=== PATIENT | female | born 1965 | race Caucasian/White ===

== ENCOUNTER 2017-10-13 09:04 | Inpatient (IN) | payer OTHER ==
[~2017-10-13 09:04] MED LIST: CEFAZOLIN 1 GM INJ; SUCCINYLCHOLINE CHLORIDE 100 MG/5 ML SYG IV
[2017-10-13] MEDS ORDERED: PROPOFOL 20 ML (11:23)
[2017-10-13] MEDS ORDERED: LIDOCAINE 2% (SDV) 5 ML INJ (11:23)
[2017-10-13] MEDS ORDERED: GLYCOPYRROLATE 0.4 MG INJ (11:23)
[2017-10-13] MEDS ORDERED: ROCURONIUM 50 MG INJ (11:23)
[2017-10-13] MEDS ORDERED: DEXAMETHASONE 4 MG/ML 1 ML INJ (11:24)
[2017-10-13] MEDS ORDERED: MIDAZOLAM 1 MG/ML 2 ML INJ (11:24)
[2017-10-13] MEDS ORDERED: NEOSTIGMINE 3 MG/3 ML SYRINGE (11:24)
[2017-10-13] MEDS ORDERED: ONDANSETRON 4 MG INJ (11:24)
[2017-10-13] MEDS ORDERED: FENTAnyl 50 MCG/ML VIAL (11:24)
[2017-10-13] MEDS ORDERED: morphine (1 MG/ML) 10ML SYRINGE IV ×3 (11:30)
[2017-10-13] MEDS ORDERED: LABETALOL HCL 20MG INJ IV (11:30)
[2017-10-13] MEDS ORDERED: hydrALAzine 20 MG INJ IV (11:30)
[2017-10-13] MEDS ORDERED: EPHEDrine SULFATE 50 MG/5 ML SYG IV (11:30)
[2017-10-13] MEDS ORDERED: ATROPINE 1 MG/10 ML SYRINGE IV (11:30)
[2017-10-13] MEDS ORDERED: OXYCODONE/ACETAMINOPHEN (5/325) TAB PO ×2 (11:30)
[2017-10-13] MEDS ORDERED: MIDAZOLAM 1 MG/ML 2 ML INJ IV (11:30)
[2017-10-13] MEDS: CEFAZOLIN 1 GM/50 ML (PMX) 50 ML IVPB (12:01)
[2017-10-13] MEDS: LIDOCAINE 1%/EPI 30 ML INJ (12:22)
[2017-10-13] MEDS: BUPIVACAINE 0.25% (MPF) 30 ML INJ (12:22)
[2017-10-13] MEDS ORDERED: METOCLOPRAMIDE 10 MG INJ (12:23)
[2017-10-13] MEDS: ONDANSETRON 4 MG INJ IV ×3 (13:25→23:15)
[2017-10-13] MEDS: HYDROmorphONE 1 MG/5 ML IV SYRINGE IV ×5 (13:26→15:38)
[2017-10-13] MEDS: MEPERIDINE 25 MG INJ IV (13:42)
[2017-10-13] MEDS ORDERED: HYDROCODONE/APAP (5/325) TAB PO (14:00)
[2017-10-13] MEDS: FENTAnyl 50 MCG/ML VIAL IV ×3 (14:01→14:37)
[2017-10-13] MEDS: DIPHENHYDRAMINE 50 MG INJ IV (14:13)
[2017-10-13] MEDS: SOD CHLORIDE 0.9% 1,000 ML IV (16:44)
[2017-10-13] MEDS: KETOROLAC 30 MG INJ IV (18:31)
[2017-10-13] MEDS: morphine 4 MG/ML VIAL IV ×2 (20:21→23:47)
[2017-10-14] MEDS: KETOROLAC 30 MG INJ IV ×4 (00:25→18:08)
[2017-10-14 05:02] LABS: ADD MAN DIFF? NO
[2017-10-14 05:07] LABS: WHITE BLOOD COUNT 10.6 10^3/ul (4.8-10.8)
[2017-10-14 05:07] LABS: BASOPHILS % 0.1 % (0.0-2.0); HEMATOCRIT 35.7 % (37.0-47.0); HEMOGLOBIN 11.8 g/dl (12.0-16.0); LYMPHOCYTES # 0.8 10^3/ul (0.8-2.9); LYMPHOCYTES % 7.1 % (15.0-51.0); MEAN CORPUSCULAR HEMOGLOBIN 31.7 pg (29.0-33.0); MEAN CORPUSCULAR HGB CONC 33.1 g/dl (32.0-37.0); MEAN PLATELET VOLUME 11.6 fl (7.4-10.4); MONOCYTE # 0.7 10^3/ul (0.3-0.9); MONOCYTES % 6.3 % (0.0-11.0); NEUTROPHIL # 9.1 10^3/ul (1.6-7.5); NEUTROPHILS % 86.1 % (39.0-77.0); PLATELET COUNT 186 10^3/UL (140-415); RED BLOOD COUNT 3.72 10^6/ul (4.20-5.40); RED CELL DISTRIBUTION WIDTH 12.2 % (11.5-14.5)
[2017-10-14 05:35] LABS: ANION GAP 11 (8-16); BLOOD UREA NITROGEN 12 mg/dl (7-20); CALCIUM 9.2 mg/dl (8.4-10.2); CARBON DIOXIDE 25 mmol/L (21-31); CHLORIDE 109 mmol/L (97-110); CREATININE 0.71 mg/dl (0.44-1.00); GLUCOSE 110 mg/dl (70-220); POTASSIUM 4.3 mmol/L (3.5-5.1); SODIUM 141 mmol/L (135-144)
[2017-10-14] MEDS: PANTOPRAZOLE 40 MG INJ IV (06:04)
[2017-10-14] MEDS: ONDANSETRON 4 MG INJ IV ×5 (06:11→23:50)
[2017-10-14] MEDS: SOD CHLORIDE 0.9% 1,000 ML IV ×2 (14:03→20:59)
[2017-10-14 19:53] LABS: ANION GAP 11 (8-16); BLOOD UREA NITROGEN 13 mg/dl (7-20); CALCIUM 9.2 mg/dl (8.4-10.2); CARBON DIOXIDE 25 mmol/L (21-31); CHLORIDE 110 mmol/L (97-110); CREATININE 0.84 mg/dl (0.44-1.00); GLUCOSE 94 mg/dl (70-220); POTASSIUM 3.7 mmol/L (3.5-5.1); SODIUM 142 mmol/L (135-144)
[2017-10-14] MEDS ORDERED: NORTRIPTYLINE 50 MG CAP PO (22:30)
[2017-10-14] MEDS: NORTRIPTYLINE 25 MG CAP PO (23:50)
[2017-10-15] MEDS: KETOROLAC 30 MG INJ IV ×3 (01:15→11:28)
[2017-10-15 05:31] LABS: ADD MAN DIFF? NO
[2017-10-15 05:39] LABS: BASOPHIL # 0.1 10^3/ul (0.0-0.1); BASOPHILS % 0.5 % (0.0-2.0); EOSINOPHILS # 0.1 10^3/ul (0.0-0.5); HEMOGLOBIN 11.2 g/dl (12.0-16.0); LYMPHOCYTES # 2.2 10^3/ul (0.8-2.9); LYMPHOCYTES % 19.6 % (15.0-51.0); MEAN CORPUSCULAR HEMOGLOBIN 31.7 pg (29.0-33.0); MEAN CORPUSCULAR HGB CONC 32.9 g/dl (32.0-37.0); MEAN CORPUSCULAR VOLUME 96.3 fl (82.0-101.0); MONOCYTE # 0.7 10^3/ul (0.3-0.9); MONOCYTES % 6.4 % (0.0-11.0); NEUTROPHILS % 72.1 % (39.0-77.0); PLATELET COUNT 157 10^3/UL (140-415); RED BLOOD COUNT 3.53 10^6/ul (4.20-5.40); RED CELL DISTRIBUTION WIDTH 12.7 % (11.5-14.5)
[2017-10-15 06:05] LABS: ANION GAP 10 (8-16); BLOOD UREA NITROGEN 13 mg/dl (7-20); CALCIUM 9.1 mg/dl (8.4-10.2); CARBON DIOXIDE 24 mmol/L (21-31); CHLORIDE 112 mmol/L (97-110); CREATININE 0.78 mg/dl (0.44-1.00); GLUCOSE 88 mg/dl (70-220); POTASSIUM 3.5 mmol/L (3.5-5.1); SODIUM 142 mmol/L (135-144)
[2017-10-15] MEDS: ONDANSETRON 4 MG INJ IV ×4 (06:28→23:11)
[2017-10-15] MEDS: PANTOPRAZOLE 40 MG INJ IV (06:28)
[2017-10-15] MEDS: NORTRIPTYLINE 25 MG CAP PO ×2 (09:00→20:24)
[2017-10-15] MEDS: SOD CHLORIDE 0.9% 1,000 ML IV (11:28)
[2017-10-15] MEDS: ALBUTEROL/IPRATROPIUM (NEB) 3 ML AMP HHN ×2 (14:30→20:00)
[2017-10-15] MEDS ORDERED: ACETAMINOPHEN 325 MG TAB PO (15:30)
[2017-10-15] MEDS ORDERED: GUAIFENESIN/DM 5ML CUP PO (15:30)
[2017-10-15] MEDS: FLUTICASONE/VILANTEROL 100-25 INH (16:00)
[2017-10-15] MEDS: traMADol 50 MG TAB PO (16:52)
[2017-10-15] MEDS: CEFTRIAXONE 1 GM/50 ML (PMX) 50 ML IVPB (16:52)
[2017-10-15] MEDS: ENOXAPARIN 40 MG/0.4 ML SYG SC (16:54)
[2017-10-15 17:19] LABS: ADD UMIC NO; UR ASCORBIC ACID NEGATIVE (NEGATIVE); UR BILIRUBIN (Dip) NEGATIVE (NEGATIVE); UR BLOOD (Dip) NEGATIVE (NEGATIVE); UR CLARITY CLEAR (CLEAR); UR COLOR STRAW (YELLOW); UR GLUCOSE (Dip) NEGATIVE (NEGATIVE); UR KETONES (Dip) NEGATIVE (NEGATIVE); UR LEUKOCYTE ESTERASE (Dip) NEGATIVE Leu/ul (NEGATIVE); UR NITRITE (Dip) NEGATIVE (NEGATIVE); UR SPECIFIC GRAVITY (Dip) 1.006 (1.003-1.030); UR TOTAL PROTEIN (Dip) NEGATIVE (NEGATIVE); UR UROBILINOGEN (Dip) NEGATIVE (NEGATIVE)
[2017-10-15] MEDS: RIZATRIPTAN 10MG PO (18:32)
[2017-10-15] MEDS: GABAPENTIN 300 MG CAP PO (20:24)
[2017-10-15] MEDS: FLUTICASONE 0.05% 16 GM NAS SPRAY NASAL (20:24)
[2017-10-16] MEDS: SOD CHLORIDE 0.9% 1,000 ML IV ×3 (00:16→15:28)
[2017-10-16] MEDS: ONDANSETRON 4 MG INJ IV ×3 (00:40→11:24)
[2017-10-16] MEDS: morphine 4 MG/ML VIAL IV (00:40)
[2017-10-16] MEDS: ALBUTEROL/IPRATROPIUM (NEB) 3 ML AMP HHN (01:53)
[2017-10-16 05:28] LABS: ADD MAN DIFF? NO
[2017-10-16] MEDS: PANTOPRAZOLE 40 MG INJ IV (05:28)
[2017-10-16 05:35] LABS: WHITE BLOOD COUNT 9.6 10^3/ul (4.8-10.8)
[2017-10-16 05:35] LABS: BASOPHILS % 0.4 % (0.0-2.0); EOSINOPHILS # 0.2 10^3/ul (0.0-0.5); HEMATOCRIT 35.5 % (37.0-47.0); HEMOGLOBIN 11.7 g/dl (12.0-16.0); LYMPHOCYTES # 1.8 10^3/ul (0.8-2.9); LYMPHOCYTES % 18.5 % (15.0-51.0); MEAN CORPUSCULAR HEMOGLOBIN 31.9 pg (29.0-33.0); MEAN CORPUSCULAR VOLUME 96.7 fl (82.0-101.0); MEAN PLATELET VOLUME 11.4 fl (7.4-10.4); MONOCYTE # 0.9 10^3/ul (0.3-0.9); MONOCYTES % 9.2 % (0.0-11.0); NEUTROPHIL # 6.6 10^3/ul (1.6-7.5); NEUTROPHILS % 69.2 % (39.0-77.0); PLATELET COUNT 151 10^3/UL (140-415); RED BLOOD COUNT 3.67 10^6/ul (4.20-5.40); RED CELL DISTRIBUTION WIDTH 12.4 % (11.5-14.5)
[2017-10-16 05:58] LABS: ANION GAP 10 (8-16); BLOOD UREA NITROGEN 10 mg/dl (7-20); CALCIUM 8.8 mg/dl (8.4-10.2); CARBON DIOXIDE 26 mmol/L (21-31); CHLORIDE 107 mmol/L (97-110); CREATININE 0.74 mg/dl (0.44-1.00); GLUCOSE 93 mg/dl (70-220); POTASSIUM 3.3 mmol/L (3.5-5.1); SODIUM 140 mmol/L (135-144)
[2017-10-16] MEDS: RIZATRIPTAN 10MG PO (07:24)
[2017-10-16] MEDS: FLUTICASONE/VILANTEROL 100-25 INH (09:00)
[2017-10-16] MEDS: ENOXAPARIN 40 MG/0.4 ML SYG SC (09:00)
[2017-10-16] MEDS: FLUTICASONE 0.05% 16 GM NAS SPRAY NASAL ×2 (09:00→20:45)
[2017-10-16 10:06] LABS: ALANINE AMINOTRANSFERASE 58 IU/L (13-69); ALBUMIN 3.8 g/dl (3.3-4.9); ALKALINE PHOSPHATASE 54 IU/L (42-121); ASPARTATE AMINO TRANSFERASE 56 IU/L (15-46); BILIRUBIN,INDIRECT 0.5 mg/dl (0-1.1); BILIRUBIN,TOTAL 0.5 mg/dl (0.2-1.3); TOTAL PROTEIN 6.7 g/dl (6.1-8.1)
[2017-10-16] MEDS: GABAPENTIN 300 MG CAP PO ×2 (14:16→20:45)
[2017-10-16] MEDS: BENAZEPRIL 40 MG TAB PO (14:17)
[2017-10-16] MEDS ORDERED: ALBUTEROL/IPRATROPIUM (NEB) 3 ML AMP HHN (14:30)
[2017-10-16] MEDS: CEFTRIAXONE 1 GM/50 ML (PMX) 50 ML IVPB (15:30)
[2017-10-16] MEDS ORDERED: ASA/ACETAMINOPHEN/CAFF TAB PO (18:00)
[2017-10-16] MEDS: ASA/ACETAMINOPHEN/CAFF TAB PO (18:43)
[2017-10-16] MEDS: NORTRIPTYLINE 25 MG CAP PO (20:45)
[2017-10-16] MEDS ORDERED: NORTRIPTYLINE 50 MG CAP PO (21:00)
[2017-10-16] MEDS ORDERED: NORTRIPTYLINE 25 MG CAP PO (21:00)
[2017-10-17] MEDS: PANTOPRAZOLE 40 MG INJ IV (05:13)
[2017-10-17] MEDS: SOD CHLORIDE 0.9% 1,000 ML IV ×2 (05:15→20:53)
[2017-10-17] MEDS: HYDROCODONE/APAP (5/325) TAB PO (05:20)
[2017-10-17 06:06] LABS: ADD MAN DIFF? NO
[2017-10-17 07:14] LABS: ANION GAP 13 (8-16); BLOOD UREA NITROGEN 11 mg/dl (7-20); CALCIUM 9.5 mg/dl (8.4-10.2); CARBON DIOXIDE 26 mmol/L (21-31); CHLORIDE 108 mmol/L (97-110); GLUCOSE 95 mg/dl (70-220); POTASSIUM 3.1 mmol/L (3.5-5.1); SODIUM 144 mmol/L (135-144)
[2017-10-17 07:18] LABS: WHITE BLOOD COUNT 10.1 10^3/ul (4.8-10.8)
[2017-10-17 07:18] LABS: BASOPHIL # 0.1 10^3/ul (0.0-0.1); BASOPHILS % 0.5 % (0.0-2.0); EOSINOPHILS # 0.5 10^3/ul (0.0-0.5); EOSINOPHILS % 5.2 % (0.0-7.0); HEMATOCRIT 36.8 % (37.0-47.0); HEMOGLOBIN 12.3 g/dl (12.0-16.0); LYMPHOCYTES # 2.1 10^3/ul (0.8-2.9); LYMPHOCYTES % 20.9 % (15.0-51.0); MEAN CORPUSCULAR HEMOGLOBIN 31.3 pg (29.0-33.0); MEAN CORPUSCULAR HGB CONC 33.4 g/dl (32.0-37.0); MEAN CORPUSCULAR VOLUME 93.6 fl (82.0-101.0); MEAN PLATELET VOLUME 11.6 fl (7.4-10.4); MONOCYTE # 0.9 10^3/ul (0.3-0.9); MONOCYTES % 8.5 % (0.0-11.0); NEUTROPHIL # 6.5 10^3/ul (1.6-7.5); NEUTROPHILS % 64.4 % (39.0-77.0); PLATELET COUNT 187 10^3/UL (140-415); RED BLOOD COUNT 3.93 10^6/ul (4.20-5.40); RED CELL DISTRIBUTION WIDTH 12.1 % (11.5-14.5)
[2017-10-17] MEDS: ENOXAPARIN 40 MG/0.4 ML SYG SC (08:16)
[2017-10-17] MEDS: FLUTICASONE/VILANTEROL 100-25 INH ×2 (08:42→18:16)
[2017-10-17] MEDS: FLUTICASONE 0.05% 16 GM NAS SPRAY NASAL ×2 (08:42→21:00)
[2017-10-17] MEDS: GABAPENTIN 300 MG CAP PO ×2 (10:11→21:00)
[2017-10-17] MEDS: POTASSIUM CHLORIDE (SR) 20 MEQ TAB PO (10:12)
[2017-10-17] MEDS: MAGNESIUM CITRATE 300 ML BTL PO (10:12)
[2017-10-17] MEDS: BENAZEPRIL 40 MG TAB PO (10:14)
[2017-10-17] MEDS: ONDANSETRON 4 MG INJ IV ×3 (12:44→22:17)
[2017-10-17] MEDS: ASA/ACETAMINOPHEN/CAFF TAB PO (16:53)
[2017-10-17] MEDS: NORTRIPTYLINE 25 MG CAP PO (20:52)
[2017-10-18] MEDS: HYDROCODONE/APAP (5/325) TAB PO ×2 (05:02→14:16)
[2017-10-18] MEDS: PANTOPRAZOLE 40 MG INJ IV (05:02)
[2017-10-18] MEDS: ONDANSETRON 4 MG INJ IV ×3 (05:02→19:28)
[2017-10-18 06:27] LABS: ANION GAP 13 (8-16); BLOOD UREA NITROGEN 10 mg/dl (7-20); CALCIUM 9.2 mg/dl (8.4-10.2); CARBON DIOXIDE 27 mmol/L (21-31); CHLORIDE 106 mmol/L (97-110); CREATININE 0.73 mg/dl (0.44-1.00); GLUCOSE 98 mg/dl (70-220); POTASSIUM 3.8 mmol/L (3.5-5.1); SODIUM 142 mmol/L (135-144)
[2017-10-18] MEDS: SOD CHLORIDE 0.9% 1,000 ML IV ×2 (08:38→22:10)
[2017-10-18] MEDS: GABAPENTIN 300 MG CAP PO ×2 (08:39→22:12)
[2017-10-18] MEDS: BENAZEPRIL 40 MG TAB PO (08:40)
[2017-10-18] MEDS: FLUTICASONE 0.05% 16 GM NAS SPRAY NASAL ×2 (08:41→22:14)
[2017-10-18] MEDS: ENOXAPARIN 40 MG/0.4 ML SYG SC (08:43)
[2017-10-18] MEDS: NORTRIPTYLINE 25 MG CAP PO (22:12)
[2017-10-19] MEDS: ONDANSETRON 4 MG TAB PO ×2 (01:43→08:00)
[2017-10-19] MEDS: HYDROCODONE/APAP (5/325) TAB PO ×2 (01:43→06:00)
[2017-10-19] MEDS: PANTOPRAZOLE 40 MG INJ IV (06:00)
[2017-10-19] MEDS: FLUTICASONE 0.05% 16 GM NAS SPRAY NASAL (09:00)
[2017-10-19] MEDS: ENOXAPARIN 40 MG/0.4 ML SYG SC (09:00)
[2017-10-19] MEDS: GABAPENTIN 300 MG CAP PO (09:55)
[2017-10-19] MEDS: BENAZEPRIL 40 MG TAB PO (09:55)
[2017-10-19] MEDS: FLUTICASONE/VILANTEROL 100-25 INH (09:58)
[2017-10-19] MEDS: SOD CHLORIDE 0.9% 1,000 ML IV (11:30)
[2017-10-19] MEDS: ONDANSETRON 4 MG INJ IV (15:39)
[2017-10-19] MEDS: ASA/ACETAMINOPHEN/CAFF TAB PO (15:43)
== END 2017-10-19 19:08 | disposition home or self-care (01) | DRG 419 ==
LOC: SDS 09:04 → MS1 15:47 → SDS 14:54 → MS1 14:54
PROC: 0FT44ZZ Resection of Gallbladder, Percutaneous Endoscopic Approach (ICD-10-PCS; principal; 2017-10-13 11:00)
DX: K80.10 Calculus of gallbladder with chronic cholecystitis without obstruction (principal); K58.9 Irritable bowel syndrome, unspecified; R11.0 Nausea; G43.909 Migraine, unspecified, not intractable, without status migrainosus; E87.6 Hypokalemia
CPT/HCPCS: 71045; 74176; 80048; 80076; 81003; 85025; 87086; 88304; 93005